=== PATIENT | female | born 1995 | race Caucasian/White ===

== ENCOUNTER 2021-07-04 08:14 | Outpatient (REF) | payer OTHER, SELFPAY ==
--- NOTE | 2021-07-04 13:37 | MHC.AU.ANO ---
Adult Audiological Evaluation Date of Visit: 07/04/21 Reason for Appointment: Audiological evaluation due to concern for tinnitus in the right ear. Ms. Rojas states that a few months ago she started having more frequent episodes of transient ear noise in her right ear (momentary loud ringing and decrease in hearing). She notes that over the past month the ringing in her right ear has become constant and bothersome. She denies any changes to her medical history around the onset of her tinnitus. She notes that she gets frequent ear infections, about 2-3 times per year and more often in the right ear. 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, Paroxysmal supraventricular tachycardia (PSVT), migraine several times a month Allergies: Codeine, seafood, seasonal allergies, suture from sugery on 06/07/20 (not sure of name) Medication List: Sertraline, Excedrin, Melatonin, Vitamin C, Vitamin D3, Fluticasone Propionate, Amoxicillin (before dental procedures), Metoprolol (haven't started taking, will be discussing with physician at an upcoming visit) Otoscopy: Right Ear: Unremarkable Left Ear: Unremarkable Tympanometry: Tympanometry performed due to: To assess integrity of the middle ear system Right Ear: Normal Middle Ear System (Type A) Left Ear: Normal Middle Ear System (Type A) Otoacoustic Emissions Frequency Range Used: 1.6-8 kHz Right Ear Results: Present Emissions Analysis: Present emissions suggest normal cochlear function. Rules out peripheral hearing loss greater than a mild degree. Left Ear Results: Present Emissions Analysis: Present emissions suggest normal cochlear function. Rules out peripheral hearing loss greater than a mild degree. Hearing Evaluation: Transducer(s) Used: Insert Earphones, Bone Conduction Method: Conventional Audiometry Stimuli Used: Pure Tones Right Ear: Description of Hearing: Normal hearing from 250-8000 Hz. Hearing in the right ear is 10-15 dBHL worse than the left ear from 250-2000 Hz and at 8000 Hz. Bone conduction testing rules out a conductive component. Left Ear: Description of Hearing: Normal hearing from 250-8000 Hz. Speech Recognition Threshold (SRT): Method Used: Monitored Live Voice Stimuli Used: Spondee Words Right Ear: 10 dBHL Left Ear: 5 dBHL Word Discrimination: Method: Recorded Lists Word Lists Used: NU-6 Right Ear: 100% at 50 dBHL Left Ear: 100% at 45 dBHL Interpretation of Results: Normal hearing bilaterally, with a slight 10-15 dBHL asymmetry with the right ear hearing worse than the left. Unilateral tinnitus in the right ear noted. Recommendations: Audiological re-evaluation in one year, or sooner if changes are noted. Given slight asymmetry, unilateral tinnitus, and report of frequent ear infections, Ms. Rojas may benefit from a referral to otolaryngology. Diagnosis: Primary Diagnosis: H93.11 Tinnitus, Right Ear Services Performed: Comprehensive Audiological Evaluation (CPT 12482) Diagnostic Otoacoustic Emissions (CPT 74293, 26+TC) Tympanometry (CPT 48766) Signature: Provider: Soumya Nolen, CCC-A
== END 2021-07-04 08:15 | disposition home or self-care (01) ==
LOC: HO.SH 08:14
PROVIDERS: Visit Provider Physician Assistant Medical
DX: Z01.118 Encounter for examination of ears and hearing with other abnormal findings (principal); H93.11 Tinnitus, right ear
CPT/HCPCS: 92557; 92567; 92588